=== PATIENT | male | born 1955 | race Caucasian/White ===

== ENCOUNTER → 2017-07-09 08:27 | Outpatient (CLI) | payer BC, SELFPAY ==
[2017-07-09 10:51] LABS: ALB/GLOB Ratio 1.1 RATIO (0.9-2.4); AST(SGOT) 15 U/L (15-37); Alanine Aminotransfer ALT/SGPT 34 U/L (16-61); Albumin, Serum 4.1 g/dL (3.2-5.0); Alkaline Phosphatase 88 U/L (45-117); Anion Gap 3 (5-15); BUN 14 mg/dL (7-18); BUN/Creat Ratio 14.4 RATIO (10-20); Calcium,Total 8.6 mg/dL (8.5-10.1); Chloride 103 mmol/L (98-107); Creatinine, Serum 0.97 mg/dL (0.70-1.30); EST Glomerular Filtration Rate 83 mL/min (>60); Est Glom Filt Rate - Afr Amer 100 mL/min (>60); Globulin 3.7 g/dL (2.2-4.2); Glucose 211 mg/dL (74-106); Potassium 4.3 mmol/L (3.5-5.1); Protein, Total 7.8 g/dL (6.4-8.2); Sodium Level 139 mmol/L (136-145)
[2017-07-09 11:06] LABS: Microalbumin,Random Urine 14.9 mg/L (NO RANGE EST.); Microalbumin:Creatinine Ratio 7.1 mg/g CRE (<30 mg/g CRE)
[2017-07-09 12:11] LABS: Hemoglobin A1c 8.2 % (4.2-6.3)
== END ==
PROVIDERS: Family Provider Family Medicine; PCP Family Medicine; Visit Provider Nurse Practitioner
DX: E11.9 Type 2 diabetes mellitus without complications (principal)
CPT/HCPCS: 36415; 80053; 82043; 82570; 83036

== ENCOUNTER → 2018-01-09 10:48 | Outpatient (CLI) | payer BC, SELFPAY ==
[2018-01-09 12:58] LABS: ALB/GLOB Ratio 1.1 RATIO (0.9-2.4); AST(SGOT) 17 U/L (15-37); Alanine Aminotransfer ALT/SGPT 33 U/L (16-61); Albumin, Serum 4.1 g/dL (3.2-5.0); Alkaline Phosphatase 85 U/L (45-117); Anion Gap 10 (5-15); BUN 10 mg/dL (7-18); BUN/Creat Ratio 9.7 RATIO (10-20); Calcium,Total 9.4 mg/dL (8.5-10.1); Chloride 99 mmol/L (98-107); Creatinine, Serum 1.03 mg/dL (0.70-1.30); EST Glomerular Filtration Rate 77 mL/min (>60); Est Glom Filt Rate - Afr Amer 94 mL/min (>60); Globulin 3.7 g/dL (2.2-4.2); Glucose 229 mg/dL (74-106); Potassium 4.6 mmol/L (3.5-5.1); Protein, Total 7.8 g/dL (6.4-8.2); Sodium Level 140 mmol/L (136-145)
[2018-01-09 13:01] LABS: Hemoglobin A1c 8.7 % (4.2-6.3)
[2018-01-09 13:09] LABS: Microalbumin,Random Urine < 5.0 mg/L (NO RANGE EST.)
== END ==
PROVIDERS: Family Provider Family Medicine; PCP Family Medicine; Visit Provider Nurse Practitioner
DX: E11.65 Type 2 diabetes mellitus with hyperglycemia (principal); Z79.4 Long term (current) use of insulin
CPT/HCPCS: 36415; 80053; 82043; 82570; 83036

== ENCOUNTER 2020-04-15 17:35 | Emergency (ER) | payer MEDICARE, BC, SELFPAY ==
[2018-07-08 14:51] VITALS: BMI 28.3
[2020-04-15 17:35] VITALS: BP 108/78; PULSE 87; RESP 16; TEMP 36.1; O2SAT 98; BMI 26.0
[2020-04-15 17:38] VITALS: BP 108/78; PULSE 87; RESP 16; TEMP 36.1; O2SAT 99
--- NOTE | 2020-04-15 17:49 | ED.VISSUMM ---
- ER Visit Summary Date of Service: 04/15/20 Chief Complaint: Abdominal pressure, diarrhea History of Present Illness: The patient is a 64 M who comes in today with abdominal pressure and diarrhea. It started about 5 days ago. He says that 5 days ago he had a lot of pressure and had projectile vomiting. He vomited once that day and has not vomited since. He has had continuous diarrhea ever since it. He has lower pressure in his abdomen. He denies any urinary symptoms. No fevers. He has had an appendectomy in the past. He took nothing for this at home. Been no sick contacts. He took a coronavirus test yesterday and it was negative. Physical Examination: Vital signs reviewed. HEENT exam unremarkable. Heart is regular rate and rhythm without murmurs. Lungs are clear to auscultation. Abdomen is soft and nontender. Extremities reveal no edema. Skin exam normal. Neurologic exam normal. Test Results: Laboratory studies unremarkable aside for glucose of 195 Emergency Department Course and Treatment: Patient was given IV fluids as well as Bentyl. He feels improved after this. I do not feel he needs any imaging studies as his abdomen is soft. Patient be discharged with Bentyl and Imodium. He will follow-up with his PCP Treatment Plan: [] Disposition: Discharge Impression: Diarrhea This note was generated with [employer] dictation software. It may contain incorrect words, spelling, and punctuation that were not noted in review of the chart prior to signing ED Disposition - Plan for ED Patient: Disposition: Home or Assisted Living Instructions: ED Diarrhea, Viral (Adult) Prescriptions: Dicyclomine HCl [Bentyl] 20 mg PO TIDAC #20 cap Prescription Printed Loperamide HCl [Imodium A-D] 2 mg PO TID #20 cap Prescription Printed Referrals: Lazaro Dela Cruz MD [NON-STAFF] -
[2020-04-15] MEDS: Dicyclomine 10 MG Capsule 20 MG PO (18:23)
[2020-04-15] MEDS: 0.9% Normal Saline 1,000 ML 999 ML IV (18:24)
[2020-04-15 18:36] LABS: Absolute Lymphocyte Count 2.32 X10^3/uL (0.83-4.51); Absolute Neutrophil Count 5.5 X10^3/uL (2.0-7.7); Basophil# 0.02 X10^3/uL; Basophil% 0.2 % (0-1); Eosinophil# 0.45 X10^3/uL; Eosinophils% 5.1 % (0-5); Hemoglobin 14.7 g/dL (13.0-16.5); Lymphocyte # 2.32 X10^3/ul (4.0); Mean Corpuscular Hgb 29.2 pg (27.0-32.0); Mean Corpuscular Volume 83.3 fL (80-94); Mean Platelet Vol. 9.9 fl (6.2-12.0); Monocyte# 0.62 X10^3/uL; NRBC Flagged by Analyzer 0 % (0-5); Neutrophil # 5.45 X10^3/uL (2.7-7.7); Neutrophil % 61.1 % (47-70); Platelet Count 247 K/mm3 (150-450); RBC Distribution Width CV 12.5 % (11.6-14.6); RBC Distribution Width SD 37.6 fl (35.1-43.9); Red Blood Count 5.04 M/mm3 (4.6-6.2); White Blood Count 8.9 K/mm3 (4.4-11.0)
[2020-04-15 19:00] LABS: AST(SGOT) 6 U/L (15-37); Alanine Aminotransfer ALT/SGPT 23 U/L (16-61); Albumin, Serum 3.4 g/dL (3.2-5.0); Alkaline Phosphatase 102 U/L (45-117); Anion Gap 5 (5-15); BUN 14 mg/dL (7-18); BUN/Creat Ratio 11.9 RATIO (10-20); Calcium,Total 8.3 mg/dL (8.5-10.1); Chloride 102 mmol/L (98-107); Creatinine, Serum 1.18 mg/dL (0.70-1.30); EST Glomerular Filtration Rate 66 mL/min (>60); Est Glom Filt Rate - Afr Amer 80 mL/min (>60); Globulin 3.4 g/dL (2.2-4.2); Glucose 195 mg/dL (74-106); Potassium 3.6 mmol/L (3.5-5.1); Protein, Total 6.8 g/dL (6.4-8.2); Sodium Level 137 mmol/L (136-145)
[2020-04-15 19:44] VITALS: BP 121/66; PULSE 75; RESP 16
== END 2020-04-15 19:45 | disposition home or self-care (01) ==
PROVIDERS: Emergency Provider Emergency Medicine; PCP Internal Medicine
DX: R19.7 Diarrhea, unspecified (principal); E11.9 Type 2 diabetes mellitus without complications
CPT/HCPCS: 80053; 85025; 96360; 99284; J7030; A4216

== ENCOUNTER 2021-03-08 19:18 | Emergency (ER) | payer MEDICARE, BC, SELFPAY ==
[2021-03-08 19:18] VITALS: BP 162/111; PULSE 80; RESP 16; TEMP 36.9; O2SAT 100; BMI 26.0
--- NOTE | 2021-03-08 20:12 | NURSING ---
pt presents to ED with c/o tingling bilaterally in lower extremities. pt was taking Mirapex with little relief. pts has switched medications to Ropinirole. pts continues to c/o cramping and now tingling since started Ropinirole. pt also c/o elbow pain. denies falling or injury to left elbow.
--- NOTE | 2021-03-08 20:15 | EX.ED.DYSGE1 ---
HPI History of Present Illness Chief Complaint: Lower Extremity Injury Detail of Chief Complaint: Restless legs, left elbow pain Informant: patient and spouse/S.O. Narrative Narrative: Patient has a history of restless leg syndrome. He had been on Mirapex for at least a year. He states he was still having muscle cramping in his legs so his doctor recently switched him to Requip. He states since starting that medication he has headaches every night, continues to have muscle cramping, and now has sharp shooting pains in his legs as well. Last dose of this medication was last evening. He called his doctor today but has not heard back. Patient also complains of left elbow pain for the past 6 months. No specific injury. He states he will get a popping sensation in his elbow occasionally that worsens the pain. He is left-hand dominant. [facility] Medical History Back problem Bone fracture Chronic headaches Diabetes type 2, controlled Restless leg syndrome Retinopathy Home Medications blood sugar diagnostic #20 ea 04/16/17 [History Last Taken Unknown] blood-glucose meter #1 ea 04/16/17 [History Last Taken Unknown] tramadol 50 mg tablet 50 mg PO Q6H PRN 04/16/17 [History Last Taken Unknown] pramipexole 0.5 mg tablet 0.5 mg PO QPM 07/08/18 [History Last Taken Unknown] dicyclomine 20 mg PO TIDAC #20 cap 04/15/20 [Rx Last Taken Unknown] loperamide 2 mg PO TID #20 cap 04/15/20 [Rx Last Taken Unknown] Vitamin C 1,000 mg PO/SL DAILY 03/08/21 [History Last Taken Unknown] amitriptyline 50 mg PO DAILY 03/08/21 [History Last Taken Unknown] calcium 600 mg PO/SL DAILY 03/08/21 [History Last Taken Unknown] glipizide 2.5 mg PO BID 03/08/21 [History Last Taken Unknown] iron 65 mg PO/SL DAILY 03/08/21 [History Last Taken Unknown] melatonin 10 mg PO/SL PCHS 03/08/21 [History Last Taken Unknown] ropinirole 2 mg PO/SL DAILY 03/08/21 [History Last Taken Unknown] Allergy/AdvReac Type Severity Reaction Status Date / Time No Known Allergies Allergy Unverified 03/08/21 19:20 Family History Mother Diabetes Heart disease Father Diabetes Heart disease Brother Diabetes Surgical History History of appendectomy S/P left rotator cuff repair S/P right rotator cuff repair Social History Smoking Status: Never smoker second hand exposure: No alcohol intake: current substance use type: does not use ROS ROS ED Constitutional Constitutional ED: Denies chills or fever(s) Eyes Eyes: Denies change in vision ENT ENT ED: Denies sore throat Cardiovascular Cardiovascular: Denies chest pain Respiratory/Chest Respiratory/Chest: Denies cough or dyspnea Gastrointestinal Gastrointestinal: Denies abdominal pain, diarrhea, nausea or vomiting Genitourinary Genitourinary ED: Denies dysuria Musculoskeletal Musculoskeletal: Reports arthralgias and myalgias; Denies back pain Integumentary Denies rash Neurologic Neurologic: Denies headache(s) or weakness Psychiatric Psychiatric: Denies anxiety or depression Allergic/Immunologic Allergic/Immunologic ED: Denies urticaria EXAM Physical Exam Const Vital Signs: 03/08/21 19:18 03/08/21 21:28 Temperature 98.5 F Temperature Source Temporal Pulse Rate 80 Respiratory Rate 16 16 Blood Pressure 162/111 H Blood Pressure Mean 128 Pulse Ox 100 Oxygen Delivery Method Room Air Positive well nourished and well developed General Appearance ED: well developed HEENT Reports normocephalic and head/scalp atraumatic Eyes PERRL and EOMs intact bilaterally Neck supple Chest Wall inspection of chest normal and palpation of chest normal Resp normal respiratory effort and clear to auscultation bilaterally Cardio regular rate and regular rhythm GI normal to inspection, nondistended, normoactive bowel sounds Palpation: soft Extremity normal to inspection Extremity Narrative: No muscular tenderness with palpation of the legs. He has tenderness over the medial epicondyle of the left elbow. No overlying erythema or warmth. Full range of motion without difficulty. Neuro oriented x3 and no sensory deficits noted Sensorium / Orientation: alert Motor Exam: strength 5/5 throughout Psych mental status grossly normal Skin no rashes or lesions noted MDM MDM MDM Narrative Medical decision making narrative: Left elbow x-rays are obtained. Radiography Diagnostic Testing: Clinical Impression(s) from Imaging Studies Elbow X-Ray 03/08/21 20:20 IMPRESSION: Hairline lucency of the olecranon. This can suggest a nondisplaced fracture. However, there is no joint effusion. Electronically Signed: Jorge Loredo MD at 20:58 EDT , Service support , Treatment and Re-Evaluation Comments:: Left elbow x-ray reveals no acute findings per my review. There is question of a hairline lucency at the olecranon. I went back and repalpated this area with no focal tenderness here. Patient has had pain for 6 months and I do not believe this represents a fracture. Patient was given a dose of Klonopin here to help with his legs. He will go ahead and go back on his Mirapex which worked better for him. He had called his PCP today but did not hear back. He was encouraged to call again tomorrow to see if his medication needs to be changed. Discharge Plan Triage Chief Complaint: Lower Extremity Injury ED Provider: Gloria Ferrer Dx/Rx/DC Orders Clinical Impression: Restless leg syndrome Instructions: RLS Prescriptions: No Action tramadol 50 mg tablet 50 mg PO Q6H PRNRF: 0 (DME) blood-glucose meter [Contour Next Meter] misc See Dose Instructions .ROUTE .MEDSUPPLY Qty: 1 RF: 0 (DME) blood sugar diagnostic [Contour Test Strips] strip See Dose Instructions .ROUTE .MEDSUPPLY Qty: 20 RF: 0 pramipexole [Mirapex] 0.5 mg tablet 0.5 mg PO QPM RF: 0 dicyclomine 10 MG capsule 20 mg PO TIDAC Qty: 20 RF: 0 loperamide 2 MG capsule 2 mg PO TID Qty: 20 RF: 0 amitriptyline 50 mg tablet 50 mg PO DAILY RF: 0 glipizide 2.5 mg tablet extended release 24 hr 2.5 mg PO BID RF: 0 Vitamin C 1,000 mg PO/SL DAILY RF: 0 calcium 600 mg PO/SL DAILY RF: 0 iron 65 mg PO/SL DAILY RF: 0 melatonin 10 mg PO/SL PCHS RF: 0 ropinirole 2 mg PO/SL DAILY RF: 0 Primary Care Provider: Bailey Vail Referrals: Bailey Vail MD [Primary Care Provider] - As soon as possible Disposition Disposition: Home, Self Care Discharge Date/Time: 03/08/21 21:29
--- NOTE | 2021-03-08 20:20 | RAD_ITS ---
EXAM: XR LEFT ELBOW COMPLETE, 3 OR MORE VIEWS CLINICAL INDICATION: pain TECHNIQUE: Frontal, lateral and oblique views of the left elbow. This report was created using [employer] report generation technology. COMPARISON: None. FINDINGS: BONES/JOINTS: Hairline lucency of the olecranon. This can suggest a nondisplaced fracture. However, there is no joint effusion. SOFT TISSUES: Unremarkable. No soft tissue swelling or gas. No radiopaque foreign body. RAD/Elbow min 3 Views IMPRESSION: Hairline lucency of the olecranon. This can suggest a nondisplaced fracture. However, there is no joint effusion. Electronically Signed: Jorge Loredo MD at 20:58 EDT , Service support ,
[2021-03-08] MEDS: clonazePAM 0.5 MG Tablet PO (21:27)
[2021-03-08 21:28] VITALS: RESP 16
== END 2021-03-08 21:29 | disposition home or self-care (01) ==
PROVIDERS: Emergency Provider Emergency Medicine; PCP Internal Medicine
DX: G25.81 Restless legs syndrome (principal); E11.9 Type 2 diabetes mellitus without complications; Z79.84 Long term (current) use of oral hypoglycemic drugs; Z79.899 Other long term (current) drug therapy
CPT/HCPCS: 73080; 99283

== ENCOUNTER 2021-08-08 11:24 | Outpatient (CLI) | payer MEDICARE, BC, SELFPAY ==
--- NOTE | 2021-08-08 11:36 | RAD_ITS ---
STUDY: X-RAY - CERVICAL SPINE REASON FOR EXAM: Male, 66 years old. Technologist Notes NECK PAIN AND STIFFNESS. PATIENT STATES HE INJURED HIS NECK WITH FX''S 40+ YRS AGO. M50.30/M54.12 TECHNIQUE: XR Spine Cervical 2 or 3 Views COMPARISON: None FINDINGS: Normal anterior atlantoaxial articulation. The odontoid process is obscured by the overlying hard palate on the open mouth view. Therefore, it is not fully evaluated by plain film. There is straightening of the normal cervical lordosis. There is multi-level endplate spondylosis. There is multi-level degenerative disc disease with multilevel disc space narrowing. There is multi-level osseous foraminal stenosis. The soft tissue structures are unremarkable. RAD/Cerv Spine 2 or 3 Views IMPRESSION: There are degenerative changes as noted above. The odontoid process is obscured by the overlying hard palate on the open mouth view. Therefore, it is not fully evaluated by plain film. Electronically Signed: Jorge Loredo MD at 17:38 EDT ,
== END 2021-08-08 23:59 | disposition home or self-care (01) ==
LOC: RAD 11:33
PROVIDERS: PCP Internal Medicine; Referring Provider Anesthesiology Pain Medicine; Visit Provider Anesthesiology Pain Medicine
DX: M50.10 Cervical disc disorder with radiculopathy, unspecified cervical region (principal)
CPT/HCPCS: 72040

== ENCOUNTER → 2021-11-25 | Outpatient (CLI) | payer MEDICARE, BC, SELFPAY ==
--- NOTE | 2021-11-25 12:55 | RAD_ITS ---
EXAM: XR LUMBOSACRAL SPINE, 2 OR 3 VIEWS CLINICAL INDICATION: BACK PAIN TECHNIQUE: Frontal and lateral views of the lumbar spine and sacrum. This report was created using [employer] report generation technology. COMPARISON: None. FINDINGS: VERTEBRAE: Unremarkable. Preserved vertebral body height. No fracture. No spondylolisthesis. Preservation of the normal lumbar lordosis. No significant facet arthropathy. DISC SPACES: No acute findings. Disc spaces are maintained. GASTROINTESTINAL TRACT: Unremarkable as visualized. Included bowel gas pattern is non-obstructive. RAD/Lumbar Spine 2 or 3 Views IMPRESSION: No evidence of lumbar spinal fracture or spondylolisthesis. Electronically Signed: Baljit Rubio MD at 3:07 EDT ,
== END | disposition home or self-care (01) ==
LOC: RAD 12:54
PROVIDERS: PCP Internal Medicine; Referring Provider Anesthesiology Pain Medicine; Visit Provider Anesthesiology Pain Medicine
DX: M51.16 Intervertebral disc disorders with radiculopathy, lumbar region (principal)
CPT/HCPCS: 72100

== ENCOUNTER 2022-02-07 11:36 | Observation (INO) | payer MEDICARE, BC, SELFPAY ==
[2022-02-07] VITALS (10 sets, daily range): BP systolic 116–136; BP diastolic 64–75; PULSE 65–77; RESP 12–18; TEMP 36.7–36.9; O2SAT 95–100; BMI 26.8
--- NOTE | 2022-02-07 13:51 | CT_ITS ---
STUDY: CT CHEST WITHOUT CONTRAST REASON FOR EXAM: Male, 66 years old. Chest trauma. RADIATION DOSAGE (If Supplied By Facility): CTDIvol = ( 18.50 ) mGy, DLP = ( 661.08 ) mGycm TECHNIQUE: Transaxial imaging was performed without the administration of intravenous contrast material. Multiplanar coronal and sagittal images were reformatted. Individualized dose optimization techniques were used for this CT. COMPARISON: No relevant priors. FINDINGS: CHEST Small benign-appearing bilateral axillary lymph nodes. Mild degree of increased markings at the lung bases slightly worse on the left side suggestive of bibasilar atelectasis. There is a small anterior pneumothorax in the mid and lower aspects of the left hemithorax. No definite left-sided rib fractures seen. There are calcifications of the coronary arteries. There are multiple small lymph nodes within the mediastinum, which are normal in size and morphology most compatible with reactive lymph hyperplasia. Normal hilar regions. Normal unenhanced pulmonary arteries. There is atherosclerotic calcification of the aortic arch with tortuosity and elongation of the aortic arch and descending thoracic aorta. There are multi-level degenerative changes of the thoracic spine. Gallstones. Pancreatic calcifications. CT/Chest without Contrast IMPRESSION: Increased markings at the lung bases suggestive of bibasilar atelectasis worse on the left side. Tiny left-sided pneumothorax. An underlying rib fracture should be ruled out. Electronically Signed: Jose Gusman MD at 14:40 EDT ,
--- NOTE | 2022-02-07 13:51 | CT_ITS ---
STUDY: CT CERVICAL SPINE WITHOUT CONTRAST REASON FOR EXAM: Male, 66 years old. History of trauma. RADIATION DOSAGE (If Supplied By Facility): CTDIvol = ( 23.83 ) mGy, DLP = ( 555.03 ) mGycm TECHNIQUE: High resolution transaxial imaging was performed without contrast material. Sagittal and coronal images were reconstructed. Individualized dose optimization techniques were used for this CT. COMPARISON: None FINDINGS: Normal craniovertebral junction. There are degenerative changes of the anterior atlantoaxial articulation. Normal odontoid process. Normal cervical lordosis. Normal vertebral bodies and posterior osseous elements. C2-3: Normal endplates. Normal disc height and morphology. Normal central canal and intervertebral neuroforamina. C3-4: Normal endplates. Normal disc height and morphology. Normal central canal and intervertebral neuroforamina. C4-5: Mild degree of disc space narrowing. Spondylosis. Uncovertebral arthrosis. Facet joint osteoarthritis worse on the left side. No significant stenosis seen. C5-6: Mild degree of disc space narrowing and spondylosis. No significant stenosis seen. C6-7: Mild degree of disc space narrowing. No significant stenosis is seen. C7-T1: Normal endplates. Normal disc height and morphology. Normal central canal and intervertebral neuroforamina. Small left pneumothorax. CT/Spine Cervical without Contras IMPRESSION: Multilevel degenerative changes, as described above. Small left pneumothorax. Electronically Signed: Jose Gusman MD at 14:42 EDT ,
--- NOTE | 2022-02-07 13:51 | CT_ITS ---
STUDY: CT LUMBAR SPINE WITHOUT CONTRAST REASON FOR EXAM: Male, 66 years old. Trauma. RADIATION DOSAGE (If Supplied By Facility): CTDIvol = ( 36.37 ) mGy, DLP = ( 1120.57 ) mGycm TECHNIQUE: The patient was scanned in a multi detector CT scanner. High resolution transaxial imaging was performed. Images were obtained from L1 to S1 level. Sagittal and coronal images were reconstructed. Individualized dose optimization techniques were used for this CT. COMPARISON: Comparison is made with prior radiographs dated 11/25/2021. FINDINGS: Normal lumbar lordosis. There is no substantial scoliosis. Minimal loss of height of the superior endplate of the L1 vertebrae. This was seen on prior study 11/25/2021. L1-2: Mild anterior spondylosis. Mild degree of diffuse posterior disc bulge. L2-3: Anterior spondylosis. Mild degree of diffuse posterior disc bulge. Hypertrophy of the ligamentum flavum. Mild degree of bilateral neural foraminal stenosis. L3-4: Diffuse posterior disc bulge. Hypertrophy of the facet joints. Mild degree of central canal stenosis due to hypertrophy of the facet joints and ligamenta flava. L4-5: Disc degeneration. Mild degree of central canal stenosis due to hypertrophy of the ligamenta flava and facet joints. L5-S1: Diffuse posterior disc bulge. Mild degree of bilateral neural foraminal stenosis. Atherosclerotic calcification of the abdominal aorta. CT/Spine Lumbar without Contrast IMPRESSION: Multilevel degenerative changes, as described above. Mild loss of height of the superior endplate of the L1 vertebrae. Electronically Signed: Jose Gusman MD at 14:45 EDT ,
--- NOTE | 2022-02-07 13:52 | EDS_ITS ---
HPI HPI - Fall History of Present Illness Chief Complaint: Fall Informant: patient and spouse/S.O. Narrative Narrative: 66-year-old male presenting to the emergency department chief complaint of back pain. Patient states that last evening he fell going down the stairs and went down headfirst. states that he indented the drywall with his head. He notes pain from his neck to his low back. He notes pain over the anterior lower left chest. He denies any hemoptysis or hematuria. No loss of consciousness or vomiting. He has had prior back pain from a previous fracture. [facility] Medical History Back problem Bone fracture Chronic headaches Diabetes type 2, controlled Restless leg syndrome Retinopathy Home Medications blood sugar diagnostic (Contour Test Strips) #20 ea 04/16/17 [History Last Taken Unknown] blood-glucose meter (Contour Next Meter) #1 ea 04/16/17 [History Last Taken Unknown] tramadol 50 mg tablet 50 mg PO BID 04/16/17 [History Last Taken 02/06/22] clonazepam 0.5 mg tablet 0.5 mg PO QHS PRN Sleep 07/20/21 [History Last Taken 02/06/22] lidocaine 5 % topical patch 1 patch transdermal QWEEK PRN Pain 07/20/21 [History Last Taken 2 Weeks Ago ~01/24/22] FreeStyle Prem 2 Sensor (flash glucose sensor) #6 ea 08/01/21 [Rx Last Taken Unknown] pregabalin 75 mg capsule 75 mg PO LUNCH 11/17/21 [History Last Taken 02/06/22] Farxiga 10 mg tablet (dapagliflozin) 10 mg PO DAILY #90 tabs 01/25/22 [Rx Last Taken 02/07/22] glipizide 5 mg tablet, extended release 24 hr 10 mg PO BID 02/07/22 [History Last Taken 02/07/22] naproxen sodium 220 mg tablet (Aleve) 440 mg PO DAILY 02/07/22 [History Last Taken 02/06/22] pregabalin 75 mg capsule 150 mg PO QHS 02/07/22 [History Last Taken 02/06/22] Allergy/AdvReac Type Severity Reaction Status Date / Time dulaglutide [From [facility] [address]] AdvReac Intermediate Diarrhea Verified 02/07/22 11:38 Family History Mother Diabetes Heart disease Father Diabetes Heart disease Brother Diabetes Surgical History History of appendectomy S/P left rotator cuff repair S/P right rotator cuff repair Social History Smoking Status: Never smoker second hand exposure: No alcohol intake: current substance use type: does not use ROS ROS ED Constitutional Constitutional ED: Denies chills, fever(s) or weight loss Eyes Eyes: Denies change in vision or diplopia ENT ENT ED: Denies ear pain, rhinorrhea or sore throat Cardiovascular Cardiovascular: Denies chest pain, orthopnea, palpitations or racing heartbeat Respiratory/Chest Respiratory/Chest: Denies cough, dyspnea or orthopnea Gastrointestinal Gastrointestinal: Denies abdominal pain, diarrhea, nausea or vomiting Genitourinary Genitourinary ED: Denies dysuria, hematuria or urinary frequency Musculoskeletal Musculoskeletal: Reports back pain and neck pain; Denies arthralgias or myalgias Integumentary Denies abscess or rash Neurologic Neurologic: Denies headache(s) or weakness Psychiatric Psychiatric: Denies anxiety, depression, suicidal ideation or suicidal thoughts Endocrine Endocrinology: Denies polydipsia, polyphagia or polyuria Allergic/Immunologic Allergic/Immunologic ED: Denies mouth swelling, tongue swelling or urticaria EXAM Physical Exam Const Vital Signs: 02/07/22 11:39 02/07/22 13:17 02/07/22 15:21 Temperature 98.0 F 98.5 F Temperature Source Temporal Oral Pulse Rate 70 67 Respiratory Rate 16 12 Respiratory Effort Normal Non-Labored Respiratory Depth Shallow Respiratory Pattern Normal Blood Pressure 136/74 H 122/75 H Blood Pressure Mean 94 90 Pulse Ox 97 95 Oxygen Delivery Method Room Air Room Air Room Air Positive well nourished and well developed General Appearance ED: well developed HEENT Reports normocephalic and head/scalp atraumatic Eyes PERRL and EOMs intact bilaterally Neck supple Chest Wall inspection of chest normal and palpation of chest normal Resp normal respiratory effort and clear to auscultation bilaterally Cardio regular rate and regular rhythm GI normal to inspection, nondistended, normoactive bowel sounds Palpation: soft Back/Spine Back/Spine Narrative: Patient reports tenderness to palpation along the lumbar thoracic and cervical paraspinal musculature as well as in the midline. There is hyperemic tissue. There is palpable muscle spasm. No crepitance noted. Lumbar Spine / Lower Back: straight leg raise positive - left Extremity normal to inspection Extremity Narrative: Patient has superficial abrasions and rug burn to the left elbow and knees. Neuro oriented x3 and no sensory deficits noted Sensorium / Orientation: alert Motor Exam: strength 5/5 throughout Psych mental status grossly normal Skin no rashes or lesions noted MDM MDM MDM Narrative Medical decision making narrative: CT of the cervical and lumbar spine were negative. CT of the chest demonstrates no obvious fracture but does demonstrate a small left-sided pneumothorax. Patient received pain medication. I spoke with Dr. Shin from pulmonology. Patient will be admitted for observation. He has received pain medication. Radiography Diagnostic Testing: Clinical Impression(s) from Imaging Studies Cervical Spine CT 02/07/22 13:51 IMPRESSION: Multilevel degenerative changes, as described above. Small left pneumothorax. Electronically Signed: Jose Gusman MD at 14:42 EDT , Chest CT 02/07/22 13:51 IMPRESSION: Increased markings at the lung bases suggestive of bibasilar atelectasis worse on the left side. Tiny left-sided pneumothorax. An underlying rib fracture should be ruled out. Electronically Signed: Jose Gusman MD at 14:40 EDT , Lumbar Spine CT 02/07/22 13:51 IMPRESSION: Multilevel degenerative changes, as described above. Mild loss of height of the superior endplate of the L1 vertebrae. Electronically Signed: Jose Gusman MD at 14:45 EDT , Discharge Plan Dx/Rx/DC Orders Clinical Impression: Fall, Acute lumbar myofascial strain, Acute cervical myofascial strain, Acute thoracic myofascial strain, Pneumothorax on left, Chest pain Disposition Disposition: Acute Care Hospital [facility]
--- NOTE | 2022-02-07 15:42 | HP.PCM.HOS_ITS ---
HPI - General General Date of Admission: 02/07/22 Date of Service: 02/07/22 Chief Complaint: Fall with neck, back, chest pain. HPI Narrative The patient is a 66 y/o M w/ PMHx: Chronic headaches, Chronic back pain, Diabetes mellitus type II, RLS, HLD who presents to the [facility] ED on 02/07/22 with history of fall down the stairs reportedly head first the evening prior noted that upon landing eventually he dented the drywall with acute on chronic pain to his neck and lumbar spine following as well as onset anterior lower chest pain, not improving, prompting ED evaluation. He currently rates his back discomfort at 8/10 in severity unless he attempts to move then rates it 10/10, constant dull severe aching with intermittent sharp stabbing and notes muscle tremors. Work-up in the ED included T98.5, heart rate 67, BP 122/75, respiratory rate 12, 95% on room air, CT lumbar spine with multilevel degenerative changes with mild loss of height of the superior endplate of L1, CT cervical spine with multilevel degenerative changes with a small left pneumothorax, follow-up CT chest without contrast with increased markings at the lung bases suggestive of bibasilar atelectasis worse on the left with a tiny left-sided pneumothorax. ED physician did discuss case with pulmonology, Dr. Shin who will follow. In the ED patient ministered Zofran 4 mg IV x1 and morphine 4 mg IV x1. CBC, BMP pending upon evaluation. [facility] Medical History Back problem Bone fracture Chronic headaches Diabetes type 2, controlled Restless leg syndrome Retinopathy Home Medications blood sugar diagnostic (Contour Test Strips) #20 ea 04/16/17 [History Last Taken Unknown] blood-glucose meter (Contour Next Meter) #1 ea 04/16/17 [History Last Taken Unknown] tramadol 50 mg tablet 50 mg PO BID 04/16/17 [History Last Taken 02/06/22] clonazepam 0.5 mg tablet 0.5 mg PO QHS PRN Sleep 07/20/21 [History Last Taken 02/06/22] lidocaine 5 % topical patch 1 patch transdermal QWEEK PRN Pain 07/20/21 [History Last Taken 2 Weeks Ago ~01/24/22] FreeStyle Prem 2 Sensor (flash glucose sensor) #6 ea 08/01/21 [Rx Last Taken Unknown] pregabalin 75 mg capsule 75 mg PO LUNCH 11/17/21 [History Last Taken 02/06/22] Farxiga 10 mg tablet (dapagliflozin) 10 mg PO DAILY #90 tabs 01/25/22 [Rx Last Taken 02/07/22] glipizide 5 mg tablet, extended release 24 hr 10 mg PO BID 02/07/22 [History Last Taken 02/07/22] naproxen sodium 220 mg tablet (Aleve) 440 mg PO DAILY 02/07/22 [History Last Taken 02/06/22] pregabalin 75 mg capsule 150 mg PO QHS 02/07/22 [History Last Taken 02/06/22] Allergy/AdvReac Type Severity Reaction Status Date / Time dulaglutide [From [facility]] AdvReac Intermediate Diarrhea Verified 02/07/22 11:38 Family History Mother Diabetes Heart disease Father Diabetes Heart disease Brother Diabetes Surgical History History of appendectomy S/P left rotator cuff repair S/P right rotator cuff repair Social History (Updated 02/07/22 @ 17:[address] Brittany Browning MD) household members: spouse Smoking Status: Never smoker second hand exposure: No alcohol intake: current substance use type: does not use ROS ROS Narrative Admission Review of Systems: CONSTITUTIONAL: No weight loss, fever, chills, + weakness or fatigue. HEENT: Eyes: No visual loss, blurred vision, double vision or yellow sclerae. Ears, Nose, Throat: No hearing loss, sneezing, congestion, runny nose or sore throat. SKIN: + Status post fall with abrasions CARDIOVASCULAR: + Right-sided anterior chest pain, worse with deep inspiratory effort. No palpitations, edema, orthopnea, syncopal events. RESPIRATORY: + Pleuritic chest pain. No shortness of breath, cough or sputum, wheezing, hemoptysis. GASTROINTESTINAL: No anorexia, nausea, vomiting or diarrhea, abdominal pain, melena, BRBPR. GENITOURINARY: No dysuria, frequency, urgency or retention. NEUROLOGICAL: No headache, dizziness, syncope, paralysis, ataxia, numbness or tingling in the extremities, focal weakness, change in bowel or bladder control, seizure. MUSCULOSKELETAL: + muscle, back pain, joint pain or stiffness. HEMATOLOGIC: + anemia, bleeding or bruising. LYMPHATICS: No enlarged nodes. No history of splenectomy. PSYCHIATRIC: + Insomnia. No history of depression or anxiety. ENDOCRINOLOGIC: No reports of sweating, cold or heat intolerance. No polyuria or polydipsia. ALLERGIES: No history of asthma, hives, eczema or rhinitis. Vital Signs Vital Signs Vital Signs: 02/07/22 11:39 02/07/22 13:17 02/07/22 15:21 Temperature 98.0 F 98.5 F Temperature Source Temporal Oral Pulse Rate 70 67 Respiratory Rate 16 12 Respiratory Effort Normal Non-Labored Respiratory Depth Shallow Respiratory Pattern Normal Blood Pressure 136/74 H 122/75 H Blood Pressure Mean 94 90 Pulse Ox 97 95 Oxygen Delivery Method Room Air Room Air Room Air Weight Weight: 198 lb Body Mass Index (BMI) 26.8 Physical Exam Narrative Physical Examination: General: Awake, alert, oriented x 3 and cooperative, laying on the side in the ED bed, ongoing significant left-sided back discomfort with spasms and left anterior chest discomfort with primarily with deep inspiratory effort and pressure. Skin: Normal color, normal turgor, no icterus, no cyanosis except for abrasions primarily to the back. HEENT: AT/NC, EOMI, PERRLA, dry MM, no carotid bruits or JVD noted. Lungs: Mildly diminished, decreased effort secondary to pain with deep inspiratory effort, no rales, ronchi or wheezing. Heart: Regular rate and rhythm; no gallop, rub audible. Abdomen: Soft, overweight, NTTP, ND, distant normal BS, no HSM. Extremities: No cyanosis, clubbing, or edema. Neurological: Patient awake, alert, oriented as noted, cognitive function intact; pupils equally reactive to light and accommodation, cranial nerves II- XII grossly normal, moving all 4 extremities but extremely limited secondary to intractable back pain and recent fall, no specific focal deficits, strength severely global decrease secondary to acute presentation. Psychiatric: Affect appears fatigued, uncomfortable, no acute evidence of dep ressive or anxiety feelings. Results Lab / Micro Data Result Diagrams: 02/07/22 16:05 02/07/22 16:05 Radiology Impression Cervical Spine CT 02/07/22 13:51 IMPRESSION: Multilevel degenerative changes, as described above. Small left pneumothorax. Electronically Signed: Jose Gusman MD at 14:42 EDT , Chest CT 02/07/22 13:51 IMPRESSION: Increased markings at the lung bases suggestive of bibasilar atelectasis worse on the left side. Tiny left-sided pneumothorax. An underlying rib fracture should be ruled out. Electronically Signed: Jose Gusman MD at 14:40 EDT , Lumbar Spine CT 02/07/22 13:51 IMPRESSION: Multilevel degenerative changes, as described above. Mild loss of height of the superior endplate of the L1 vertebrae. Electronically Signed: Jose Gusman MD at 14:45 EDT , Assessment & Plan Assessment/Plan (1) Fall: (2) Pneumothorax on left: (3) Intractable back pain: PLAN: Plan The patient is a 66 y/o M w/ PMHx: Chronic headaches, Chronic back pain, Diabetes mellitus type II, RLS, HLD who presents to the [facility] ED on 02/07/22 with history of fall down the stairs reportedly head first the evening prior noted that upon landing eventually he dented the drywall with acute on chronic pain to his neck and lumbar spine following as well as onset anterior lower chest pain, not improving, prompting ED evaluation. #1. Mechanical fall with acute on chronic lumbar and cervical neck pain: Will admit to [facility] telemetry, maintain on fall precautions, frequent positioning, initiate IV toradol, lidoacine patches, tizanidine, medrol dose pack, po/IV narcotic pain regimen, anti-emetics, bowel regimen. Will consult PT and OT for evaluation as well as Case management for discharge planning. #2. Acute left-sided tiny pneumothorax with associated anterior L sided chest discomfort: CT chest without any contrast with increased marking lung bases suggestive of bibasilar atelectasis worse on the left with tiny left-sided pneumothorax, will continue consultation with Dr. Shin, pulmonary medicine with plan repeat CT chest in a.m. to further assess, maintain supplementation oxygen, low threshold to repeat imaging if any significantly sudden onset worsening chest discomfort. #3. Diabetes mellitus type II with neuropathy: Hold oral home regimen, ADA diet, accu checks w/ ISS, continue patient home with pregabalin regimen. #4. Restless leg syndrome: We will continue patient home nightly clonazepam. #5. Hyperlipidemia: Not on regimen, defer to outpatient. #6. DVT prophylaxis: SCDs, defer chemoprophylaxis in case worsened pneumothoraces with need for chest tube placement. Charges/Coding Visit Charges OBSV E&M: 27311 Initial observation care L3
[2022-02-07] MEDS: Morphine 4 MG/ML Syringe IV (16:11)
[2022-02-07] MEDS: Ondansetron 4 MG/2 ML Vial IV (16:11)
[2022-02-07 16:25] LABS: Absolute Lymphocyte Count 1.35 X10^3/uL (0.83-4.51); Absolute Neutrophil Count 4.6 X10^3/uL (2.0-7.7); Basophil# 0.02 X10^3/uL; Basophil% 0.3 % (0-1); Eosinophil# 0.32 X10^3/uL; Eosinophils% 4.6 % (0-5); Hematocrit 38.7 % (40-54); Hemoglobin 12.8 g/dL (13.0-16.5); Lymphocyte # 1.35 X10^3/ul (0.83-4.51); Lymphocyte % 19.2 % (19-41); Mean Corp Hgb Conc 33.1 g/dL (32-36); Mean Corpuscular Hgb 28.8 pg (27.0-32.0); Mean Platelet Vol. 10.1 fl (6.2-12.0); Monocyte# 0.68 X10^3/uL; Monocyte% 9.7 % (0-10); NRBC Flagged by Analyzer 0 % (0-5); Neutrophil # 4.62 X10^3/uL (2.7-7.7); Neutrophil % 65.8 % (47-70); Platelet Count 150 K/mm3 (150-450); RBC Distribution Width CV 13.2 % (11.6-14.6); RBC Distribution Width SD 41.1 fl (35.1-43.9); Red Blood Count 4.45 M/mm3 (4.6-6.2)
[2022-02-07 16:38] LABS: Anion Gap 6 (5-15); BUN 19 mg/dL (7-18); BUN/Creat Ratio 22.8 RATIO (10-20); Chloride 108 mmol/L (98-107); Creatinine, Serum 0.83 mg/dL (0.70-1.30); EST Glomerular Filtration Rate 98 mL/min (>60); Est Glom Filt Rate - Afr Amer 118 mL/min (>60); Estimated Creatinine Clearance 94.79 ml/min; Glucose 132 mg/dL (74-106); Potassium 3.7 mmol/L (3.5-5.1); Sodium Level 143 mmol/L (136-145)
[2022-02-07] MEDS: 0.9% Saline Lock 10 ML Syringe IV (17:57)
[2022-02-07] MEDS: 0.9% Normal Saline 1,000 ML 100 ML IV (17:57)
[2022-02-07] MEDS: Ketorolac 15 MG/ML Vial IV ×2 (18:00→23:02)
[2022-02-07] MEDS: tiZANidine HCl 2 MG Tablet PO (18:01)
[2022-02-07 18:05] LABS: Bedside Glucose 126 mg/dL (74-106)
[2022-02-07] MEDS: Lidocaine 5% Patch 2 PATCH TOPICAL (18:05)
[2022-02-07] MEDS: oxyCODONE 5 MG Tablet PO ×2 (19:06→23:08)
[2022-02-07] MEDS: Insulin Lispro 100 UNIT/ML INSULN.PEN SC (21:37)
[2022-02-07] MEDS: Morphine 2 MG/ML Syringe IV (21:38)
[2022-02-07] MEDS: MethylPREDNISolone DosePak 4 MG BOX PO (21:38)
[2022-02-07] MEDS: Pregabalin 75 MG Capsule 150 MG PO (21:38)
[2022-02-07 22:15] LABS: Bedside Glucose 281 mg/dL (74-106)
[2022-02-07] MEDS: clonazePAM 0.5 MG Tablet PO (23:03)
[2022-02-08 03:00] VITALS: PULSE 64
[2022-02-08 04:06] VITALS: BP 122/80; PULSE 66; RESP 18; TEMP 36.6; O2SAT 96
[2022-02-08] MEDS: 0.9% Normal Saline 1,000 ML 100 ML IV (04:06)
[2022-02-08] MEDS: Acetaminophen 325 MG Tablet 650 MG PO ×2 (04:11→10:50)
[2022-02-08] MEDS: oxyCODONE 5 MG Tablet PO ×2 (04:11→10:50)
[2022-02-08] MEDS: tiZANidine HCl 2 MG Tablet PO (04:11)
[2022-02-08] MEDS: Ketorolac 15 MG/ML Vial IV (06:19)
[2022-02-08 07:30] VITALS: PULSE 71
[2022-02-08 07:30] LABS: Absolute Lymphocyte Count 0.47 X10^3/uL (0.83-4.51); Absolute Neutrophil Count 6.7 X10^3/uL (2.0-7.7); Basophil# 0.02 X10^3/uL; Basophil% 0.3 % (0-1); Eosinophil# 0.03 X10^3/uL; Eosinophils% 0.4 % (0-5); Hematocrit 38.5 % (40-54); Hemoglobin 12.7 g/dL (13.0-16.5); Lymphocyte # 0.47 X10^3/ul (0.83-4.51); Lymphocyte % 6.3 % (19-41); Mean Corpuscular Hgb 29.5 pg (27.0-32.0); Mean Corpuscular Volume 89.5 fL (80-94); Mean Platelet Vol. 10.6 fl (6.2-12.0); Monocyte# 0.24 X10^3/uL; Monocyte% 3.2 % (0-10); NRBC Flagged by Analyzer 0 % (0-5); Neutrophil # 6.65 X10^3/uL (2.7-7.7); Neutrophil % 89.4 % (47-70); POSITIVE DIFFERENTIAL YES; Platelet Count 150 K/mm3 (150-450); RBC Distribution Width CV 13.3 % (11.6-14.6); RBC Distribution Width SD 43.8 fl (35.1-43.9); White Blood Count 7.4 K/mm3 (4.4-11.0)
[2022-02-08 07:38] LABS: Differential Indicated SCAN CRITERIA MET
[2022-02-08 08:01] LABS: AST(SGOT) 21 U/L (15-37); Alanine Aminotransfer ALT/SGPT 29 U/L (16-61); Albumin, Serum 3.3 g/dL (3.2-5.0); Alkaline Phosphatase 66 U/L (45-117); Anion Gap 6 (5-15); BUN 18 mg/dL (7-18); BUN/Creat Ratio 22.1 RATIO (10-20); Calcium,Total 8.4 mg/dL (8.5-10.1); Chloride 108 mmol/L (98-107); Creatinine, Serum 0.81 mg/dL (0.70-1.30); EST Glomerular Filtration Rate 100 mL/min (>60); Est Glom Filt Rate - Afr Amer 122 mL/min (>60); Estimated Creatinine Clearance 97.13 ml/min; Globulin 3.3 g/dL (2.2-4.2); Glucose 237 mg/dL (74-106); Potassium 4.7 mmol/L (3.5-5.1); Protein, Total 6.6 g/dL (6.4-8.2); Sodium Level 139 mmol/L (136-145)
[2022-02-08 08:10] VITALS: BP 104/60; PULSE 68; RESP 18; TEMP 36.6; O2SAT 98
[2022-02-08] MEDS: Insulin Lispro 100 UNIT/ML INSULN.PEN SC (08:18)
[2022-02-08] MEDS: MethylPREDNISolone DosePak 4 MG BOX PO (08:19)
[2022-02-08] MEDS: Morphine 2 MG/ML Syringe IV (08:24)
[2022-02-08] MEDS: 0.9% Saline Lock 10 ML Syringe IV (08:25)
[2022-02-08 08:27] LABS: Platelet Estimate ADEQUATE (ADEQ); Red Cell Morphology NORM C+C NORMAL (NORM C&C)
[2022-02-08 08:45] LABS: Bedside Glucose 237 mg/dL (74-106)
--- NOTE | 2022-02-08 08:45 | RAD_ITS ---
STUDY: X-RAY CHEST REASON FOR EXAM: Male, 66 years old. PTX TECHNIQUE: PA and lateral views of the chest. COMPARISON: None. FINDINGS: EKG electrodes are seen. No significant pneumothorax is seen. There is no demonstrated pleural abnormality. Normal size heart. Normal mediastinum and gaby. Normal visualized pulmonary arteries. There is atherosclerotic calcification of the aortic arch with tortuosity. There are mild degenerative changes of the visualized thoracic spine. Healed right rib fractures. There is no demonstrated abnormality of the visualized soft tissue structures of the upper abdomen. RAD/Chest PA and Lateral IMPRESSION: No significant pneumothorax is seen. Healed right-sided rib fractures. Electronically Signed: Jose Gusman MD at 12:23 EDT ,
[2022-02-08] MEDS: Lidocaine 5% Patch 2 PATCH TOPICAL (09:35)
--- NOTE | 2022-02-08 10:09 | EX.PCM.CONCC ---
Assessment & Plan Assessment/Plan (1) Pneumothorax on left: PLAN: Plan RECOMMENDATIONS: 1. No additional intervention or work-up is indicated. Given the asymptomatic nature and small size of the pneumothorax, tube thoracotomy was not indicated. Repeat chest x-ray showed no discernible pneumothorax this morning. Therefore, the patient can be discharged home from my perspective. He was advised to return to the emergency department for reevaluation if he were to develop any worsening respiratory symptoms or chest discomfort. IMPRESSIONS: 1. Small apical pneumothorax status post fall The patient's CT imaging from yesterday demonstrated a small anterior pneumothorax. Given its small size and asymptomatic nature of the patient's presentation, conservative management was recommended. The patient has been maintained on supplemental oxygen overnight. His repeat imaging from this morning demonstrated no discernible pneumothorax. Accordingly, the patient be discharged home from my perspective. No additional intervention or work-up is indicated. 2. History of diabetes mellitus/restless leg syndrome/hyperlipidemia Complicates care, management, recovery and prognosis. Continue home medications as indicated. This note was generated with [employer] dictation software. It may contain incorrect words, spelling, and punctuation that were not noted in checking the note before signing. HPI Consult Data Date of Consult: 02/08/22 HPI Narrative Reason for Consultation: Pneumothorax HPI Narrative: The patient is a 66-year-old male, with a history as outlined below, who presented to the emergency department on February for low back pain after sustaining a fall down the stairs of his home. The patient reported that he was attempting to navigate the steps with his elderly dog and may have lost his balance, ultimately ending up falling down the stairs and striking the drywall below. The patient is a lifelong non-smoker and denies any prior pneumothoraces. On presentation to the emergency department, the patient was noted to be afebrile hemodynamically stable. His laboratory work-up was unremarkable. Due to the nature of his fall, a CT C-spine, L-spine and chest CT were obtained. The cervical and lumbar CT scan showed no acute fractures or dislocations. His chest CT, however, demonstrated a very small anterior left-sided pneumothorax. No definitive rib fractures were identified. The patient was subsequently admitted to the hospital and placed on nasal cannula supplemental O2 for overnight observation. This morning, the patient reports some mild back pain with deep inspiration, but overall denies any shortness of breath. [facility] Medical History Back problem Bone fracture Chronic headaches Diabetes type 2, controlled Restless leg syndrome Retinopathy Home Medications blood sugar diagnostic (Contour Test Strips) #20 ea 04/16/17 [History Last Taken Unknown] blood-glucose meter (Contour Next Meter) #1 ea 04/16/17 [History Last Taken Unknown] tramadol 50 mg tablet 50 mg PO BID 04/16/17 [History Last Taken 02/06/22] clonazepam 0.5 mg tablet 0.5 mg PO QHS PRN Sleep 07/20/21 [History Last Taken 02/06/22] lidocaine 5 % topical patch 1 patch transdermal QWEEK PRN Pain 07/20/21 [History Last Taken 2 Weeks Ago ~01/24/22] FreeStyle Prem 2 Sensor (flash glucose sensor) #6 ea 08/01/21 [Rx Last Taken Unknown] pregabalin 75 mg capsule 75 mg PO LUNCH 11/17/21 [History Last Taken 02/06/22] Farxiga 10 mg tablet (dapagliflozin) 10 mg PO DAILY #90 tabs 01/25/22 [Rx Last Taken 02/07/22] glipizide 5 mg tablet, extended release 24 hr 10 mg PO BID 02/07/22 [History Last Taken 02/07/22] naproxen sodium 220 mg tablet (Aleve) 440 mg PO DAILY 02/07/22 [History Last Taken 02/06/22] pregabalin 75 mg capsule 150 mg PO QHS 02/07/22 [History Last Taken 02/06/22] lidocaine 5 % topical patch 2 patch topical DAILY PRN pain #15 ea 02/08/22 [Rx Last Taken Unknown] oxycodone 5 mg tablet 5 mg PO Q6H 3 days #12 tabs 02/08/22 [Rx Last Taken Unknown] Allergy/AdvReac Type Severity Reaction Status Date / Time dulaglutide [From [facility]] AdvReac Intermediate Diarrhea Verified 02/07/22 11:38 Family History Mother Diabetes Heart disease Father Diabetes Heart disease Brother Diabetes Surgical History History of appendectomy S/P left rotator cuff repair S/P right rotator cuff repair Social History (Updated 02/07/22 @ 17:[address] Brittany Browning MD) household members: spouse Smoking Status: Never smoker second hand exposure: No alcohol intake: current substance use type: does not use ROS ROS Narrative 10 systems were reviewed with pertinent positives as noted in the HPI above. Physical Exam Const alert, oriented x3 and no apparent distress Constitutional Narrative: Sitting in bedside recliner. General Appearance: cooperative HEENT normocephalic, head/scalp atraumatic and moist oral mucous membranes Eyes PERRL, EOMs intact bilaterally and conjunctivae normal Neck supple General: trachea midline Chest inspection of chest normal Resp normal respiratory effort Auscultation: Negative for rales, rhonchi or wheezes Cardio regular rate and regular rhythm GI normal to inspection, nondistended, normoactive bowel sounds Extremity no clubbing, cyanosis or edema Skin no rashes or lesions noted Neuro oriented x3, CN's II-XII intact bilaterally, moves all extremities and no focal motor deficits Psych cooperative and affect normal Lab / Micro Data Result Diagrams: 02/08/22 06:35 02/08/22 06:35 Labs: Laboratory Results - last 24 hr 02/07/22 16:05: WBC 7.0, RBC 4.45 L, Hgb 12.8 L, Hct 38.7 L, MCV 87.0, MCH 28.8, MCHC 33.1, RDW Std Deviation 41.1, RDW Coeff of [place]ilet 13.2, Plt Count 150, MPV 10.1, Immature Gran % (Auto) 0.400, Neut % (Auto) 65.8, Lymph % (Auto) 19.2, [place] % (Auto) 9.7, Eos % (Auto) 4.6, Baso % (Auto) 0.3, Absolute Neuts (auto) 4.6, Absolute Lymphs (auto) 1.35, Nucleated RBC % 0 02/07/22 16:05: Sodium 143, Potassium 3.7, Chloride 108 H, Carbon Dioxide 29.0, Anion Gap 6, BUN 19 H, Creatinine 0.83, Estim Creat Clear Calc 94.79, Est GFR (MDRD) Af Amer 118, Est GFR (MDRD) Non-Af 98, BUN/Creatinine Ratio 22.8 H, Glucose 132 H, Calcium 9.0 02/07/22 17:44: POC Glucose 126 H 02/07/22 21:30: POC Glucose 281 H 02/08/22 06:35: WBC 7.4, RBC 4.30 L, Hgb 12.7 L, Hct 38.5 L, MCV 89.5, MCH 29.5, MCHC 33.0, RDW Std Deviation 43.8, RDW Coeff of [place] 13.3, Plt Count 150, MPV 10.6, Immature Gran % (Auto) 0.400, Neut % (Auto) 89.4 H, Lymph % (Auto) 6.3 L, [place] % (Auto) 3.2, Eos % (Auto) 0.4, Baso % (Auto) 0.3, Absolute Neuts (auto) 6.7, Absolute Lymphs (auto) 0.47 L, Nucleated RBC % 0, Platelet Estimate ADEQUATE, RBC Morphology NORM C+C 02/08/22 06:35: Sodium 139, Potassium 4.7, Chloride 108 H, Carbon Dioxide 25.0, Anion Gap 6, BUN 18, Creatinine 0.81, Estim Creat Clear Calc 97.13, Est GFR (MDRD) Af Amer 122, Est GFR (MDRD) Non-Af 100, BUN/Creatinine Ratio 22.1 H, Glucose 237 H, Calcium 8.4 L, Total Bilirubin 0.60, AST 21, ALT 29, Alkaline Phosphatase 66, Total Protein 6.6, Albumin 3.3, Globulin 3.3, Albumin/Globulin Ratio 1.0 02/08/22 08:07: POC Glucose 237 H Radiology Impression Cervical Spine CT 02/07/22 13:51 IMPRESSION: Multilevel degenerative changes, as described above. Small left pneumothorax. Electronically Signed: Jose Gusman MD at 14:42 EDT , Chest CT 02/07/22 13:51 IMPRESSION: Increased markings at the lung bases suggestive of bibasilar atelectasis worse on the left side. Tiny left-sided pneumothorax. An underlying rib fracture should be ruled out. Electronically Signed: Jose Gusman MD at 14:40 EDT , Lumbar Spine CT 02/07/22 13:51 IMPRESSION: Multilevel degenerative changes, as described above. Mild loss of height of the superior endplate of the L1 vertebrae. Electronically Signed: Jose Gusman MD at 14:45 EDT , Charges/Coding Visit Charges Inpatient E&M: 15450 Init Hosp L2
--- NOTE | 2022-02-08 10:17 | PCM.DC.SUM ---
Providers Date of Admission: 02/07/22 Date of Discharge: 02/08/22 Primary Care Physician: Dr. Bailey Vail MD Consultations 02/07/22 17:15 Consult: Nursing Informatics Clinical Analyst / Pulmonary Medicine Routine Consulting Provider: Shaka Shin Reason for Consult: L sided PTX, small after fall. EMERGENT Consult: No MD Notified: Yes Date Notified: 02/07/22 Time Notified: 16:14 Method of Notification: ED Physician Initiated Reason For Visit: FALL, INTRACTGABLE BACK/NECK PAIN,SMALL L PTX Diagnosis Discharge Diagnosis (1) Pneumothorax on left: Status: Acute Code(s): J93.9 - Pneumothorax, unspecified Medications at Discharge Home Medications blood sugar diagnostic (Contour Test Strips) #20 ea 04/16/17 blood-glucose meter (Contour Next Meter) #1 ea 04/16/17 tramadol 50 mg tablet 50 mg PO BID 04/16/17 clonazepam 0.5 mg tablet 0.5 mg PO QHS PRN Sleep 07/20/21 lidocaine 5 % topical patch 1 patch transdermal QWEEK PRN Pain 07/20/21 FreeStyle Prem 2 Sensor (flash glucose sensor) #6 ea 08/01/21 pregabalin 75 mg capsule 75 mg PO LUNCH 11/17/21 Farxiga 10 mg tablet (dapagliflozin) 10 mg PO DAILY #90 tabs 01/25/22 glipizide 5 mg tablet, extended release 24 hr 10 mg PO BID 02/07/22 naproxen sodium 220 mg tablet (Aleve) 440 mg PO DAILY 02/07/22 pregabalin 75 mg capsule 150 mg PO QHS 02/07/22 lidocaine 5 % topical patch 2 patch topical DAILY PRN pain #15 ea 02/08/22 oxycodone 5 mg tablet 5 mg PO Q6H 3 days #12 tabs 02/08/22 Hospital Course Operations None Procedures - (Chest x-ray/CT chest) Summary of Care Provided Minutes Spent on Discharge: 22 Hospital Course: Mr. Gardner is a 66-year-old white male who presented to the emergency department on 02/08/2022 after suffering a fall complaining of neck, back, and chest pain. The patient reported that he fell down a flight of 13 stairs the night prior to presentation which resulted in dented drywall. He was complaining of acute on chronic pain in his neck and lumbar spine as well as the sudden onset of anterior lower chest pain that was not improving and was ultimately the cause for his emergency department evaluation. He has chronic spine musculoskeletal issues and feels that the fall flared up these problems however the chest pain is not something he typically has a baseline. Work-up in the ED included T98.5, heart rate 67, BP 122/75, respiratory rate 12, 95% on room air, CT lumbar spine with multilevel degenerative changes with mild loss of height of the superior endplate of L1, CT cervical spine with multilevel degenerative changes with a small left pneumothorax, follow-up CT chest without contrast with increased markings at the lung bases suggestive of bibasilar atelectasis worse on the left with a tiny left-sided pneumothorax.? The case does discussed with pulmonary medicine and they recommended admission as an observation for repeat imaging and evaluation tomorrow to assure that the pneumothorax is not enlarged. The patient was treated with Zofran and morphine in the emergency department given his pain and admitted to the medical floor. He was given pain medication, steroids, continued on his home Lyrica, lidocaine patch, and was placed on supplemental oxygen to help reabsorption of the pneumothorax. Repeat imaging was performed on the a.m. of 02/08/2022 and no significant pneumothorax was noted on his chest x-ray. Pulmonary medicine evaluated the patient and felt he was stable to be able to discharge home with no needed follow-up unless he has any worsening symptoms after discharge at which time referral can be made. The patient was anxious to go home and felt like he was sore but not having any respiratory issues and was able to be on room air. We did send a short course of oxycodone for 3 days and recommended he hold his Ultram while he was taking this as well as being on a stool softener or drinking prune juice to avoid constipation associated with narcotics and he was discharged with a prescription for lidocaine patches. We encouraged follow-up with his primary care physician within the next 2 weeks. He was able to be discharged home in stable condition on 02/08/2022. Discharge diagnoses: Small left-sided pneumothorax secondary to suspected rib fracture Cervical spine DJD Lumbar spine DJD/DDD Mild normocytic anemia DM-2 Chronic pain Neuropathy Anxiety/insomnia Chronic headaches Restless leg syndrome Weight / BMI Weight Weight: 89.81 kg Body Mass Index (BMI) 26.8 ABG / Lab / Microbiology Data Result Diagrams: 02/08/22 06:35 02/08/22 06:35 Laboratory: Laboratory Results - last 24 hr 02/07/22 16:05: WBC 7.0, RBC 4.45 L, Hgb 12.8 L, Hct 38.7 L, MCV 87.0, MCH 28.8, MCHC 33.1, RDW Std Deviation 41.1, RDW Coeff of [place] 13.2, Plt Count 150, MPV 10.1, Immature Gran % (Auto) 0.400, Neut % (Auto) 65.8, Lymph % (Auto) 19.2, [place] % (Auto) 9.7, Eos % (Auto) 4.6, Baso % (Auto) 0.3, Absolute Neuts (auto) 4.6, Absolute Lymphs (auto) 1.35, Nucleated RBC % 0 02/07/22 16:05: Sodium 143, Potassium 3.7, Chloride 108 H, Carbon Dioxide 29.0, Anion Gap 6, BUN 19 H, Creatinine 0.83, Estim Creat Clear Calc 94.79, Est GFR (MDRD) Af Amer 118, Est GFR (MDRD) Non-Af 98, BUN/Creatinine Ratio 22.8 H, Glucose 132 H, Calcium 9.0 02/07/22 17:44: POC Glucose 126 H 02/07/22 21:30: POC Glucose 281 H 02/08/22 06:35: WBC 7.4, RBC 4.30 L, Hgb 12.7 L, Hct 38.5 L, MCV 89.5, MCH 29.5, MCHC 33.0, RDW Std Deviation 43.8, RDW Coeff of [place] 13.3, Plt Count 150, MPV 10.6, Immature Gran % (Auto) 0.400, Neut % (Auto) 89.4 H, Lymph % (Auto) 6.3 L, [place] % (Auto) 3.2, Eos % (Auto) 0.4, Baso % (Auto) 0.3, Absolute Neuts (auto) 6.7, Absolute Lymphs (auto) 0.47 L, Nucleated RBC % 0, Platelet Estimate ADEQUATE, RBC Morphology NORM C+C 02/08/22 06:35: Sodium 139, Potassium 4.7, Chloride 108 H, Carbon Dioxide 25.0, Anion Gap 6, BUN 18, Creatinine 0.81, Estim Creat Clear Calc 97.13, Est GFR (MDRD) Af Amer 122, Est GFR (MDRD) Non-Af 100, BUN/Creatinine Ratio 22.1 H, Glucose 237 H, Calcium 8.4 L, Total Bilirubin 0.60, AST 21, ALT 29, Alkaline Phosphatase 66, Total Protein 6.6, Albumin 3.3, Globulin 3.3, Albumin/Globulin Ratio 1.0 02/08/22 08:07: POC Glucose 237 H Radiography Diagnostic Testing: Radiology Impression Cervical Spine CT 02/07/22 13:51 IMPRESSION: Multilevel degenerative changes, as described above. Small left pneumothorax. Electronically Signed: Jose Gusman MD at 14:42 EDT , Chest CT 02/07/22 13:51 IMPRESSION: Increased markings at the lung bases suggestive of bibasilar atelectasis worse on the left side. Tiny left-sided pneumothorax. An underlying rib fracture should be ruled out. Electronically Signed: Jose Gusman MD at 14:40 EDT , Lumbar Spine CT 02/07/22 13:51 IMPRESSION: Multilevel degenerative changes, as described above. Mild loss of height of the superior endplate of the L1 vertebrae. Electronically Signed: Jose Gusman MD at 14:45 EDT , D/C Instructions Discharge Diet: Low fat / Low cholesterol and 1800 Calorie Control Diet Discharge Activity: Return to Normal Activity Return to work on: 02/13/22 Meaningful Use Info Meaningful Use Diagnoses (Choose all that apply): None applicable Discharge Plan Admission Admit Date/Time: 02/07/22 15:49 Primary Reason for Your Visit: Fall Attending Provider: Carolina Gaines Primary Care Provider: Bailey Vail Consulting Providers: Shaka Shin ; Brittany Browning Instructions Additional Instructions / Restrictions: 1. Please drink prune juice or take stool softeners while on narcotics for pain to avoid constipation Discharge Orders/Prescriptions Prescriptions: New lidocaine 5 % Adhesive Patch,Medicated 2 patch topical DAILY PRN (Reason: pain) Qty: 15 0RF Protocol: *Topical Application Instructions APPLICATION INSTRUCTIONS: to back Rx Instructions: PLACE OVER AFFECTED AREA oxycodone 5 mg Tablet 5 mg PO Q6H 3 Days Qty: 12 0RF Continued (DME) blood-glucose meter [Contour Next Meter] misc See Dose Instructions .ROUTE .MEDSUPPLY Qty: 1 Rx Instructions: As directed (DME) blood sugar diagnostic [Contour Test Strips] strip See Dose Instructions .ROUTE .MEDSUPPLY Qty: 20 Label Comments: use to check BG up to 4 x qd Rx Instructions: As directed lidocaine 5 % adhesive patch,medicated 1 patch transdermal QWEEK PRN (Reason: Pain) clonazepam 0.5 mg tablet 0.5 mg PO QHS PRN (Reason: Sleep) Label Comments: take 1 tablet by mouth at bedtime if needed for UP TO 90 DAYS pregabalin 75 mg capsule 75 mg PO LUNCH glipizide 5 mg Tablet Extended Release 24hr 10 mg PO BID naproxen sodium [Aleve] 220 mg Tablet 440 mg PO DAILY pregabalin 75 mg capsule 150 mg PO QHS (DME) FreeStyle Prem 2 Sensor Kit See Rx Instructions .ROUTE .MEDSUPPLY Qty: 6 3RF Rx Instructions: As directed Farxiga 10 mg tablet 10 mg PO DAILY Qty: 90 1RF Held tramadol 50 mg tablet 50 mg PO BID Hold Instructions: Hold while taking oxycodone Referrals / Follow Up: Bailey Vail MD [Primary Care Provider] - Within 2 Weeks Disposition Disposition (needs filled in before D/C Order can be placed): Home, Self Care Charges/Coding Visit Charges OBSV E&M: 67165 Observation care discharge
[2022-02-08 10:49] VITALS: BP 114/69; PULSE 76; RESP 18; TEMP 36.8; O2SAT 99
[2022-02-08 10:53] VITALS: PULSE 82
[2022-02-08 11:14] VITALS: BMI 26.8
--- NOTE | 2022-02-08 11:25 | CASEMGMT ---
No therapy recommended for pt and per pt nurse, pt did not qualify for home oxygen. No homegoing needs at this time.
--- NOTE | 2022-02-08 11:35 | PHA.DC.MR ---
Pharmacy Service has performed discharge medication reconciliation for this patient. The patient's discharge medication list was reviewed for discrepancies and discrepancies were resolved. Medication education papers prepared, patient discharged before I was able to staff genetic counselor. Home Medications blood sugar diagnostic (Contour Test Strips) #20 ea 04/16/17 blood-glucose meter (Contour Next Meter) #1 ea 04/16/17 tramadol 50 mg tablet 50 mg PO BID 04/16/17 clonazepam 0.5 mg tablet 0.5 mg PO QHS PRN Sleep 07/20/21 lidocaine 5 % topical patch 1 patch transdermal QWEEK PRN Pain 07/20/21 FreeStyle Prem 2 Sensor (flash glucose sensor) #6 ea 08/01/21 pregabalin 75 mg capsule 75 mg PO LUNCH 11/17/21 Farxiga 10 mg tablet (dapagliflozin) 10 mg PO DAILY #90 tabs 01/25/22 glipizide 5 mg tablet, extended release 24 hr 10 mg PO BID 02/07/22 naproxen sodium 220 mg tablet (Aleve) 440 mg PO DAILY 02/07/22 pregabalin 75 mg capsule 150 mg PO QHS 02/07/22 lidocaine 5 % topical patch 2 patch topical DAILY PRN pain #15 ea 02/08/22 oxycodone 5 mg tablet 5 mg PO Q6H 3 days #12 tabs 02/08/22
== END 2022-02-08 11:30 | disposition home or self-care (01) ==
LOC: ED 15:34 → MS3 16:35
PROVIDERS: Admitting Provider Family Medicine; Emergency Provider Emergency Medicine; PCP Internal Medicine; Visit Provider Internal Medicine
DX: S27.0XXA Traumatic pneumothorax, initial encounter (principal); E11.40 Type 2 diabetes mellitus with diabetic neuropathy, unspecified; E78.5 Hyperlipidemia, unspecified; G89.29 Other chronic pain; M47.816 Spondylosis without myelopathy or radiculopathy, lumbar region; W10.9XXA Fall (on) (from) unspecified stairs and steps, initial encounter; D64.9 Anemia, unspecified; Z79.84 Long term (current) use of oral hypoglycemic drugs; S16.1XXA Strain of muscle, fascia and tendon at neck level, initial encounter; G25.81 Restless legs syndrome; S39.012A Strain of muscle, fascia and tendon of lower back, initial encounter; M47.812 Spondylosis without myelopathy or radiculopathy, cervical region; S29.019A Strain of muscle and tendon of unspecified wall of thorax, initial encounter; Z79.899 Other long term (current) drug therapy; Y92.9 Unspecified place or not applicable
CPT/HCPCS: 36415; 71046; 71250; 72125; 72131; 80048; 80053; 82962; 85025; 96361; 96374; 96375; 96376; 97161; 97165; 99218; 99251; 99285; J7030; A4216; G0378; G0463; J2405

== ENCOUNTER → 2022-05-17 | Outpatient (CLI) | payer MEDICARE, SELFPAY ==
[2022-05-17 12:34] LABS: Microalbumin,Random Urine 58.4 mg/L (NO RANGE EST.); Microalbumin:Creatinine Ratio 21.1 mg/g CRE (<30 mg/g CRE)
[2022-05-17 13:08] LABS: Cholesterol 233 mg/dL (200); High Density Lipoprotein 45 mg/dL; Thyroid Stim Hormone (TSH) 4.11 uIU/mL (0.358-3.74); Triglycerides 123 mg/dL; Very Low Density Lipoprotein 25 mg/dL (5-40)
[2022-05-17 17:10] LABS: ALB/GLOB Ratio 1.2 RATIO (0.9-2.4); AST(SGOT) 12 U/L (15-37); Alanine Aminotransfer ALT/SGPT 27 U/L (16-61); Albumin, Serum 4.1 g/dL (3.2-5.0); Alkaline Phosphatase 102 U/L (45-117); Anion Gap 4 (5-15); BUN 16 mg/dL (7-18); BUN/Creat Ratio 18.3 RATIO (10-20); Calcium,Total 8.9 mg/dL (8.5-10.1); Chloride 106 mmol/L (98-107); Creatinine, Serum 0.88 mg/dL (0.70-1.30); EST Glomerular Filtration Rate 92 mL/min (>60); Est Glom Filt Rate - Afr Amer 111 mL/min (>60); Globulin 3.4 g/dL (2.2-4.2); Glucose 204 mg/dL (74-106); Potassium 4.7 mmol/L (3.5-5.1); Protein, Total 7.5 g/dL (6.4-8.2); Sodium Level 141 mmol/L (136-145)
== END | disposition home or self-care (01) ==
PROVIDERS: PCP Internal Medicine; Referring Provider Nurse Practitioner Family; Visit Provider Nurse Practitioner Family
DX: I10 Essential (primary) hypertension (principal); E11.65 Type 2 diabetes mellitus with hyperglycemia; E11.69 Type 2 diabetes mellitus with other specified complication; E78.5 Hyperlipidemia, unspecified
CPT/HCPCS: 36415; 80053; 80061; 82043; 82570; 84443